=== PATIENT | male | born 1975 | race Caucasian/White ===

== ENCOUNTER 2019-06-22 12:34 | Inpatient (IN) | payer OTHER ==
[~2019-06-22] VITALS: Ht 182.9 cm; Wt 145.0 kg
[~2019-06-22 12:34] MED LIST: ASPI81TA50 PO; ATOR40TA59 PO; BUPR150T15 PO; CARV3.1210 PO; LEVO25TA55 PO; TORS20TA2 PO
[2019-06-22 15:15] VITALS: BP 97/51
--- NOTE | 2019-06-22 16:14 | PDOC1 ---
History and Physical Date of Admission Date of Admission DATE: 06/22/19 TIME: 16:14 Identification/Chief Complaint Chief Complaint INPATIENT HOSPICE FOR ENDSTAGE CHF History of Present Illness History of Present Illness ADMITTED TO INPATIENT [facility] SEEN IN ER WITH PSYCHOSIS 43 year old male who presents with altered mental status. Patient is a history of a nonischemic cardiomyopathy can use he just had a 16-day admission at where he had an echo that showed a 15% ejection fraction he was up 100 pounds from his dry weight he had a Bumex drip he had altered mental status back then in the hospital ultimately he came off of the heart failure service because he was not a candidate for advanced heart failure therapies according to the discharge summary Since he is been home he is been urinating on himself mother cannot take care of him anymore she told me that he he told her that he would not want to be on life support. HOSPICE NOW [facility] IS STILL ALTERED, WORKED HIM UP Past Medical History Past Medical History Past Medical History Past Medical History Past Medical History: Anemia, Anxiety, CHF, Depression, Diabetes-Type II, High Cholesterol, Hypertension, Hypothyroid, Other Additional Past Medical Histor: V-TACH,CARDIOGENIC SHOCK,JACKI Past Surgical History: Appendectomy, Other Additional Past Surgical Histo: AICD,HERNIA Smoking Status: Former Smoker Alcohol Use: None Social History Narrative: LAST USED May PRIOR TO ADMISSION TO [facility] FHX OBESITY Family History Family History: High Cholestrol, Hypertension Social History Smoke: <1 pack per day ALCOHOL: heavy Drugs: Marijuana Current Problem List Problem List Problems Medical Problems: (1) Altered mental status Status: Acute Current Medications Current Medications Current Medications Piperacillin Sod/ Tazobactam Sod 3.375 gm/Sodium Chloride 50 ml @ 100 mls/hr 1X ONCE IV Last administered on 06/18/19at 15:07; Start 06/18/19 at 14:30; Stop 06/18/19 at 14:59; Status DC Active Scripts Active Reported Synthroid (Levothyroxine Sodium) 25 Mcg Tablet 25 Mcg PO DAILYAC Wellbutrin Xl (Bupropion Hcl) 150 Mg Tab.er.24h 75 Mg PO DAILY Atorvastatin Calcium 40 Mg Tablet 40 Mg PO HS Aspir-Low (Aspirin) 81 Mg Tablet.dr 81 Mg PO DAILY Torsemide 20 Mg Tablet 80 Mg PO DAILY Carvedilol (Carvedilol) 3.125 Mg Tablet 3.125 Mg PO BIDWMEALS Allergies Allergies: Coded Allergies: trazodone (Verified Allergy, Unknown, 06/19/19) zolpidem (Verified Allergy, Unknown, 06/19/19) ROS Review of System UNABLE TO COOPERATE DUE TO PSYCHOSIS Musculoskeletal: Yes Muscular Weakness Neurological: Yes Impaired Coord/balance, Yes Memory Loss Physical Exam Physical Exam Physical Exam Physical Exam Constitutional: Disheveled, MODERATELY altered HENT: Normocephalic, atraumatic, bilateral external ears normal, oropharynx moist, no oral exudates, nose normal. [] Eyes: PERRLA, EOMI,, no discharge. [] Sclera appear icteric Neck: Normal range of motion, no tenderness, supple, no stridor. [] Cardiovascular: Difficult exam distant heart sounds Lungs & Thorax: Decreased at the bases Abdomen: Bowel sounds normal, soft, there is significant obesity difficult to assess for clear exam Back: No tenderness, no CVA tenderness. [] Extremities: No tenderness, no cyanosis, no clubbing, ROM intact, anasarca present Neurologic: Patient is moaning almost incoherently HEENT: Mucous membr. moist/pink Lungs: Clear to auscultation Heart: RRR Breasts: Not examined Abdomen: Normal bowel sounds, Soft Rectal Exam: not examined PELVIC: Examination not indicated Extremities: No cyanosis Neuro: Cranial nerves 3-12 NL Family History Family History: High Cholestrol, Hypertension Social History Smoke: <1 pack per day ALCOHOL: heavy Drugs: Marijuana Current Medications Current Medications Active Scripts Active Reported Synthroid (Levothyroxine Sodium) 25 Mcg Tablet 25 Mcg PO DAILYAC Wellbutrin Xl (Bupropion Hcl) 150 Mg Tab.er.24h 75 Mg PO DAILY Atorvastatin Calcium 40 Mg Tablet 40 Mg PO HS Aspir-Low (Aspirin) 81 Mg Tablet.dr 81 Mg PO DAILY Torsemide 20 Mg Tablet 80 Mg PO DAILY Carvedilol (Carvedilol) 3.125 Mg Tablet 3.125 Mg PO BIDWMEALS Allergies Allergies: Coded Allergies: trazodone (Verified Allergy, Unknown, 06/19/19) zolpidem (Verified Allergy, Unknown, 06/19/19) ROS General: YES: Fatigue PSYCHOLOGICAL ROS: YES: Disorientation, Hallucinations Eyes: No Blurry vision, No Decreased vision, No Double vision, No Dry eyes, No Excessive tearing, No Eye Pain, No Itchy Eyes, No Loss of vision, No Photophobia, No Scotomata, No Uses contacts, No Uses glasses, No Other HEENT: No: Heacaches, Visual Changes, Hearing change, Nasal congestion, Nasal discharge, Oral lesions, Sinus pain, Sore Throat, Epistaxis, Sneezing, Snoring, Tinnitus, Vertigo, Vocal changes, Other Breast: No New/Changing Breast Lumps, No Nipple changes, No Nipple discharge, No Other Respiratory: No: Cough, Hemoptysis, Orthopnea, Pleuritic Pain, Shortness of breath, SOB with excertion, Sputum Changes, Stridor, Tachypnea, Wheezing, Other Cardiovascular: No Chest Pain, No Palpitations, No Orthopnea, No Paroxysmal Noc. Dyspnea, No Edema, No Lt Headedness, No Other Gastrointestinal: No Nausea, No Vomiting, No Abdominal Pain, No Diarrhea, No Constipation, No Melena, No Hematochezia, No Other Genitourinary: YES Urgency Musculoskeletal: Yes Gait Disturbance, Yes Joint Stiffness Neurological: Yes Confusion Physical Exam HEENT: Atraumatic, EOMI, Mucous membr. moist/pink Lungs: Clear to auscultation, Normal air movement Heart: RRR, no thrills Abdomen: Normal bowel sounds, Soft Rectal Exam: not examined PELVIC: Examination not indicated Extremities: No cyanosis Skin: No breakdown Neuro: Cranial nerves 3-12 NL Vitals Vitals Vital Signs Date Time Temp Pulse Resp B/P (MAP) Pulse Ox O2 Delivery O2 Flow Rate FiO2 06/22/19 15:30 Room Air 06/22/19 15:15 98.1 93 18 97/51 (66) 94 98.1 VTE Prophylaxis Ordered VTE Prophylaxis Devices: Yes VTE Pharmacological Prophylaxi: Yes Assessment/Plan Assessment/Plan VTE Prophylaxis Ordered VTE Prophylaxis Devices: No VTE Pharmacological Prophylaxi: Yes Assessment/Plan Assessment/Plan IMPRESSION ALTERED MENTAL STATUS SEC TO PSYCHOSIS 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 SEVERE MORBID OBESITY UTI HX AICD PLAN ADMIT CARDIOLOGY CONSULT [facility] PENDING IV ROCEPHIN 2 GM Q 24 HRS 77 min pt exam, chart review, > 50% of time spent with exam, chart review, pt care coordination DEVON MARSHALL MD Jun 22, 2019 16:14
[2019-06-22] MEDS ORDERED: ACETAMINOPHEN 650 MG SUPP.RECT. PR PRN (16:30)
[2019-06-22] MEDS ORDERED: PROMETHAZINE 25 MG SUPP.RECT. PR PRN (16:30)
[2019-06-22] MEDS ORDERED: BISACODYL 10 MG SUPP.RECT. PR PRN (16:30)
[2019-06-22] MEDS ORDERED: LORazepam 1 MG TABLET PO PRN ×2 (16:30→17:45)
[2019-06-22] MEDS: CARVEDILOL 3.125 MG TABLET. PO SCH (17:00)
[2019-06-22] MEDS ORDERED: PROCHLORPERAZINE 5 MG TABLET. PO PRN (17:45)
[2019-06-22] MEDS ORDERED: diphenhydrAMINE 50 MG/ML VIAL IVP PRN (17:45)
[2019-06-22] MEDS: LORazepam 1 MG TABLET PO PRN ×2 (17:58→20:30)
[2019-06-22 19:00] VITALS: BP 113/62
[2019-06-22] MEDS: ATORVASTATIN CALCIUM 40 MG TABLET. PO SCH (20:29)
[2019-06-23 03:05] VITALS: BP 117/67
[2019-06-23 07:00] VITALS: BP 119/72
[2019-06-23] MEDS: LEVOTHYROXINE 25 MCG TABLET. PO SCH (09:49)
[2019-06-23] MEDS: buPROPion XL 150 MG TAB.ER.24H. PO SCH (09:49)
[2019-06-23] MEDS: THIAMINE IM 200 MG/2 ML VIAL. IM SCH (09:49)
[2019-06-23] MEDS: TORSEMIDE 20 MG TABLET. PO SCH (09:49)
[2019-06-23] MEDS: CARVEDILOL 3.125 MG TABLET. PO SCH ×2 (09:49→17:13)
[2019-06-23] MEDS: ASPIRIN ENTERIC COATED 81 MG TABLET.DR. PO SCH (09:49)
--- NOTE | 2019-06-23 11:11 | PDOC ---
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 SEVERE MORBID OBESITY UTI HX AICD PLAN ADMIT CARDIOLOGY CONS[facility] PEND[facility] IV ROCEPHIN 2 GM Q 24 HRS 37 min pt exam, chart review, > 50% of time spent with exam, chart review, pt care coordination Vitals Vitals Vital Signs Date Time Temp Pulse Resp B/P (MAP) Pulse Ox O2 Delivery O2 Flow Rate FiO2 06/23/19 09:49 105 119/72 06/23/19 08:00 Room Air 06/23/19 07:00 97.5 18 91 97.5 Physical Exam Physical Exam Constitutional: Disheveled, MODERATELY altered HENT: Normocephalic, atraumatic, bilateral external ears normal, oropharynx moist, no oral exudates, nose normal. [] Eyes: PERRLA, EOMI,, no discharge. [] Sclera appear icteric Neck: Normal range of motion, no tenderness, supple, no stridor. [] Cardiovascular: Difficult exam distant heart sounds Lungs & Thorax: Decreased at the bases Abdomen: Bowel sounds normal, soft, there is significant obesity difficult to assess for clear exam Back: No tenderness, no CVA tenderness. [] Extremities: No tenderness, no cyanosis, no clubbing, ROM intact, anasarca present Neurologic: Patient is moaning almost incoherently HEENT: Mucous membr. moist/pink Lungs: Clear to auscultation Heart: RRR Breasts: Not examined Abdomen: Normal bowel sounds, Soft Rectal Exam: not examined PELVIC: Examination not indicated Extremities: No cyanosis Neuro: Cranial nerves 3-12 NL General: Cooperative, No acute distress Lungs: Clear Abdomen: Normal bowel sounds, Soft, No tenderness Extremities: No cyanosis Skin: No breakdown Labs LABS Laboratory Tests Test 06/22/19 16:34 06/22/19 20:34 06/23/19 07:24 06/23/19 08:47 Glucose (Fingerstick) 73 mg/dL (70-99) 133 mg/dL (70-99) 64 mg/dL (70-99) 103 mg/dL (70-99) Comment Review of Relevant I have reviewed the following items severo (where applicable) has been applied. Labs Laboratory Tests Test 06/22/19 16:34 06/22/19 20:34 06/23/19 07:24 06/23/19 08:47 Glucose (Fingerstick) 73 mg/dL (70-99) 133 mg/dL (70-99) 64 mg/dL (70-99) 103 mg/dL (70-99) Laboratory Tests Test 06/22/19 16:34 06/22/19 20:34 06/23/19 07:24 06/23/19 08:47 Glucose (Fingerstick) 73 mg/dL (70-99) 133 mg/dL (70-99) 64 mg/dL (70-99) 103 mg/dL (70-99) Medications Current Medications Morphine Sulfate (Roxanol Conc) 5 mg PRN Q2HRS PRN SL SOA/MOD-SEVERE PAIN; Start 06/22/19 at 16:30 Lorazepam (Ativan) 1 mg PRN Q4HRS PRN PO ANXIETY / AGITATION; Start 06/22/19 at 16:30; Stop 06/22/19 at 17:44; Status DC Bisacodyl (Dulcolax Supp) 10 mg PRN DAILY PRN SC CONSTIPATION; Start 06/22/19 at 16:30 Promethazine HCl (Phenergan Supp) 25 mg PRN Q4HRS PRN SC NAUSEA/VOMITING; Start 06/22/19 at 16:30 Acetaminophen (Tylenol Supp) 650 mg PRN Q4HRS PRN SC MILD PAIN / TEMP; Start 06/22/19 at 16:30 Aspirin (Ecotrin) 81 mg DAILY PO Last administered on 06/23/19at 09:49; Start 06/23/19 at 09:00 Atorvastatin Calcium (Lipitor) 40 mg HS PO Last administered on 06/22/19at 20:29; Start 06/22/19 at 21:00 Bupropion HCl (Wellbutrin Xl) 75 mg DAILY PO Last administered on 06/23/19at 09:49; Start 06/23/19 at 09:00 Carvedilol (Coreg) 3.125 mg BIDWMEALS PO Last administered on 06/23/19at 09:49; Start 06/22/19 at 17:00 Levothyroxine Sodium (Synthroid) 25 mcg DAILYAC PO Last administered on 06/23/19at 09:49; Start 06/23/19 at 07:30 Torsemide (Demadex) 80 mg DAILY PO Last administered on 06/23/19at 09:49; Start 06/23/19 at 09:00 Multivitamins (Thera M Plus) 1 tab DAILY PO ; Start 06/27/19 at 09:00 Folic Acid (Folic Acid) 1 mg DAILY PO ; Start 06/27/19 at 09:00 Thiamine Mononitrate (Vitamin B-1) 100 mg DAILY PO ; Start 06/27/19 at 09:00 Thiamine HCl 100 mg DAILY IM Last administered on 06/23/19at 09:49; Start 06/23/19 at 09:00; Stop 06/26/19 at 09:01 Lorazepam (Ativan) 4 mg PRN Q1HR PRN PO For CIWA 8-14 Last administered on 06/22/19at 20:30; Start 06/22/19 at 17:45 Lorazepam (Ativan) 8 mg PRN Q1HR PRN PO For CIWA 15 or greater; Start 06/22/19 at 17:45 Lorazepam (Ativan Inj) 2 mg PRN Q1HR PRN IV For CIWA 8-14; Start 06/22/19 at 17:45 Lorazepam (Ativan Inj) 4 mg PRN Q1HR PRN IV For CIWA 15 or greater; Start at 17:45 Haloperidol Lactate (Haldol Inj) 5 mg PRN Q4HRS PRN IVP Hallucinatns,Confusn,Delirium; Start 06/22/19 at 17:45 Diphenhydramine HCl (Benadryl) 25 mg PRN Q15MIN PRN IVP EPS symptoms 2'Haldol admin; Start 06/22/19 at 17:45 Lorazepam (Ativan Inj) 2 mg PRN Q15MIN PRN IV SEE COMMENTS; Start 06/22/19 at 17:45 Lorazepam (Ativan Inj) 4 mg PRN Q15MIN PRN IV SEE COMMENTS; Start 06/22/19 at 17:45 Lorazepam (Ativan) 4 mg PRN Q4HRS PRN PO ANXIETY / AGITATION Last administered on 06/22/19at 17:58; Start 06/22/19 at 17:45 Prochlorperazine Maleate (Compazine) 10 mg PRN Q8HRS PRN PO NAUSEA/VOMITING Last administered on 06/22/19at 17:57; Start 06/22/19 at 17:45 Active Scripts Active Reported Synthroid (Levothyroxine Sodium) 25 Mcg Tablet 25 Mcg PO DAILYAC Wellbutrin Xl (Bupropion Hcl) 150 Mg Tab.er.24h 75 Mg PO DAILY Atorvastatin Calcium 40 Mg Tablet 40 Mg PO HS Aspir-Low (Aspirin) 81 Mg Tablet.dr 81 Mg PO DAILY Torsemide 20 Mg Tablet 80 Mg PO DAILY Carvedilol (Carvedilol) 3.125 Mg Tablet 3.125 Mg PO BIDWMEALS Vitals/I & O Vital Sign - Last 24 Hours 06/22/19 06/22/19 06/22/19 06/22/19 15:15 15:30 17:00 19:00 Temp 98.1 97.5 98.1 97.5 Pulse 93 98 86 Resp 18 24 B/P (MAP) 97/51 (66) 157/52 113/62 (79) Pulse Ox 94 93 O2 Delivery Room Air Room Air Room Air 06/22/19 06/23/19 06/23/19 06/23/19 20:00 03:05 07:00 08:00 Temp 98.1 97.5 98.1 97.5 Pulse 92 105 Resp 22 18 B/P (MAP) 117/67 (84) 119/72 (88) Pulse Ox 92 91 O2 Delivery Room Air Room Air Room Air Room Air 06/23/19 09:49 Pulse 105 B/P (MAP) 119/72 Intake and Output 06/22/19 06/22/19 06/23/19 15:00 23:00 07:00 Intake Total 1260 ml 0 ml Output Total 1425 ml 0 ml Balance -165 ml 0 ml DEVON MARSHALL MD Jun 23, 2019 11:11
[2019-06-23] MEDS: IPRATRPIUM/ALBUTEROL 0.5/2.5MG 3 ML NEBU. NEB SCH ×2 (16:00→20:55)
[2019-06-23 19:00] VITALS: BP 108/68
[2019-06-23] MEDS: ATORVASTATIN CALCIUM 40 MG TABLET. PO SCH (19:43)
[2019-06-23] MEDS: HALOPERIDOL LACTATE 5 MG/ML VIAL. IVP PRN (21:41)
[2019-06-24 07:00] VITALS: BP 122/77
[2019-06-24] MEDS: IPRATRPIUM/ALBUTEROL 0.5/2.5MG 3 ML NEBU. NEB SCH ×5 (07:33→21:15)
[2019-06-24] MEDS: ASPIRIN ENTERIC COATED 81 MG TABLET.DR. PO SCH (07:53)
[2019-06-24] MEDS: LEVOTHYROXINE 25 MCG TABLET. PO SCH (07:53)
[2019-06-24] MEDS: TORSEMIDE 20 MG TABLET. PO SCH (07:53)
[2019-06-24] MEDS: buPROPion XL 150 MG TAB.ER.24H. PO SCH (07:53)
[2019-06-24] MEDS: CARVEDILOL 3.125 MG TABLET. PO SCH ×2 (07:54→17:33)
[2019-06-24] MEDS: THIAMINE IM 200 MG/2 ML VIAL. IM SCH (07:56)
[2019-06-24] MEDS: HALOPERIDOL LACTATE 5 MG/ML VIAL. IVP PRN (10:06)
--- NOTE | 2019-06-24 15:47 | PDOC ---
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 SEVERE MORBID OBESITY UTI HX AICD secondary to nonischemic cardiomyopathy with an ejection fraction reported at 15% History of Present Illness History of Present Illness Patient stable at the present time eating lunch no concerns from the nursing staff except that he walks around and they are concerned that he may fall. No further concerns were voiced Vitals Vitals Vital Signs Date Time Temp Pulse Resp B/P (MAP) Pulse Ox O2 Delivery O2 Flow Rate FiO2 06/24/19 12:06 Room Air 06/24/19 07:54 45 122/77 06/24/19 07:33 96 06/24/19 07:00 98.1 17 98.1 Physical Exam Physical Exam Constitutional: Disheveled, MODERATELY altered HENT: Normocephalic, atraumatic, bilateral external ears normal, oropharynx moist, no oral exudates, nose normal. [] Eyes: PERRLA, EOMI,, no discharge. [] Sclera appear icteric Neck: Normal range of motion, no tenderness, supple, no stridor. [] Cardiovascular: Difficult exam distant heart sounds Lungs & Thorax: Decreased at the bases Abdomen: Bowel sounds normal, soft, there is significant obesity difficult to assess for clear exam Back: No tenderness, no CVA tenderness. [] Extremities: No tenderness, no cyanosis, no clubbing, ROM intact, anasarca present Neurologic: Patient is moaning almost incoherently HEENT: Mucous membr. moist/pink Lungs: Clear to auscultation Heart: RRR Breasts: Not examined Abdomen: Normal bowel sounds, Soft Rectal Exam: not examined PELVIC: Examination not indicated Extremities: No cyanosis Neuro: Cranial nerves 3-12 NL General: Cooperative, No acute distress Lungs: Clear Abdomen: Normal bowel sounds, Soft, No tenderness Extremities: No cyanosis Skin: No breakdown Labs LABS Laboratory Tests Test 06/23/19 16:24 06/23/19 19:13 06/24/19 07:28 06/24/19 11:36 Glucose (Fingerstick) 142 mg/dL (70-99) 156 mg/dL (70-99) 110 mg/dL (70-99) 127 mg/dL (70-99) Review of Systems Review of Systems Review of systems pertinent as per HPI otherwise 14 point review of system is negative Comment Review of Relevant I have reviewed the following items severo (where applicable) has been applied. Labs Laboratory Tests Test 06/22/19 16:34 06/22/19 20:34 06/23/19 07:24 06/23/19 08:47 Glucose (Fingerstick) 73 mg/dL (70-99) 133 mg/dL (70-99) 64 mg/dL (70-99) 103 mg/dL (70-99) Test 06/23/19 11:47 06/23/19 16:24 06/23/19 19:13 06/24/19 07:28 Glucose (Fingerstick) 145 mg/dL (70-99) 142 mg/dL (70-99) 156 mg/dL (70-99) 110 mg/dL (70-99) Test 06/24/19 11:36 Glucose (Fingerstick) 127 mg/dL (70-99) Laboratory Tests Test 06/23/19 16:24 06/23/19 19:13 06/24/19 07:28 06/24/19 11:36 Glucose (Fingerstick) 142 mg/dL (70-99) 156 mg/dL (70-99) 110 mg/dL (70-99) 127 mg/dL (70-99) Medications Current Medications Morphine Sulfate (Roxanol Conc) 5 mg PRN Q2HRS PRN SL SOA/MOD-SEVERE PAIN; Start 06/22/19 at 16:30 Lorazepam (Ativan) 1 mg PRN Q4HRS PRN PO ANXIETY / AGITATION; Start 06/22/19 at 16:30; Stop 06/22/19 at 17:44; Status DC Bisacodyl (Dulcolax Supp) 10 mg PRN DAILY PRN DE CONSTIPATION; Start 06/22/19 at 16:30 Promethazine HCl (Phenergan Supp) 25 mg PRN Q4HRS PRN DE NAUSEA/VOMITING; Start 06/22/19 at 16:30 Acetaminophen (Tylenol Supp) 650 mg PRN Q4HRS PRN DE MILD PAIN / TEMP; Start 06/22/19 at 16:30 Aspirin (Ecotrin) 81 mg DAILY PO Last administered on 06/24/19at 07:53; Start 06/23/19 at 09:00 Atorvastatin Calcium (Lipitor) 40 mg HS PO Last administered on 06/23/19 19:43; Start 06/22/19 at 21:00 Bupropion HCl (Wellbutrin Xl) 75 mg DAILY PO Last administered on 06/24/19 07:53; Start 06/23/19 at 09:00 Carvedilol (Coreg) 3.125 mg BIDWMEALS PO Last administered on 06/23/19at 17:13; Start 06/22/19 at 17:00 Levothyroxine Sodium (Synthroid) 25 mcg DAILYAC PO Last administered on 06/24/19 07:53; Start 06/23/19 at 07:30 Torsemide (Demadex) 80 mg DAILY PO Last administered on 06/24/19 07:53; Start 06/23/19 at 09:00 Multivitamins (Thera M Plus) 1 tab DAILY PO ; Start 06/27/19 at 09:00 Folic Acid (Folic Acid) 1 mg DAILY PO ; Start 06/27/19 at 09:00 Thiamine Mononitrate (Vitamin B-1) 100 mg DAILY PO ; Start 06/27/19 at 09:00 Thiamine HCl 100 mg DAILY IM Last administered on 06/24/19 07:56; Start 05/30 08/17 at 09:00; Stop 06/26/19 at 09:01 Lorazepam (Ativan) 4 mg PRN Q1HR PRN PO For CIWA 8-14 Last administered on 06/22/19at 20:30; Start 06/22/19 at 17:45 Lorazepam (Ativan) 8 mg PRN Q1HR PRN PO For CIWA 15 or greater; Start 06/22/19 at 17:45 Lorazepam (Ativan Inj) 2 mg PRN Q1HR PRN IV For CIWA 8-14 Last administered on 06/23/19at 23:28; Start 06/22/19 at 17:45 Lorazepam (Ativan Inj) 4 mg PRN Q1HR PRN IV For CIWA 15 or greater Last administered on 06/23/19at 19:43; Start 06/22/19 at 17:45 Haloperidol Lactate (Haldol Inj) 5 mg PRN Q4HRS PRN IVP Hallucinatns,Confusn,Delirium Last administered on 06/24/19at 10:06; Start 06/22/19 at 17:45 Diphenhydramine HCl (Benadryl) 25 mg PRN Q15MIN PRN IVP EPS symptoms 2'Haldol admin; Start 06/22/19 at 17:45 Lorazepam (Ativan Inj) 2 mg PRN Q15MIN PRN IV SEE COMMENTS; Start 06/22/19 at 17:45; Status Cancel Lorazepam (Ativan Inj) 4 mg PRN Q15MIN PRN IV SEE COMMENTS; Start 06/22/19 at 17:45; Status Cancel Lorazepam (Ativan) 4 mg PRN Q4HRS PRN PO ANXIETY / AGITATION Last administered on 06/22/19at 17:58; Start 06/22/19 at 17:45 Prochlorperazine Maleate (Compazine) 10 mg PRN Q8HRS PRN PO NAUSEA/VOMITING Last administered on 06/22/19at 17:57; Start 06/22/19 at 17:45 Albuterol/ Ipratropium (Duoneb) 3 ml RTQID NEB Last administered on 06/24/19at 12:06; Start 06/23/19 at 16:00 Active Scripts Active Reported Synthroid (Levothyroxine Sodium) 25 Mcg Tablet 25 Mcg PO DAILYAC Wellbutrin Xl (Bupropion Hcl) 150 Mg Tab.er.24h 75 Mg PO DAILY Atorvastatin Calcium 40 Mg Tablet 40 Mg PO HS Aspir-Low (Aspirin) 81 Mg Tablet.dr 81 Mg PO DAILY Torsemide 20 Mg Tablet 80 Mg PO DAILY Carvedilol (Carvedilol) 3.125 Mg Tablet 3.125 Mg PO BIDWMEALS Vitals/I & O Vital Sign - Last 24 Hours 06/23/19 06/23/19 06/23/19 06/23/19 17:13 19:00 20:00 21:03 Temp 98.1 98.1 Pulse 98 99 Resp 18 B/P (MAP) 104/78 108/68 (81) Pulse Ox 96 96 O2 Delivery Room Air Room Air 06/24/19 06/24/19 06/24/19 06/24/19 07:00 07:30 07:33 07:54 Temp 98.1 98.1 Pulse 45 45 Resp 17 B/P (MAP) 122/77 (92) 122/77 Pulse Ox 71 96 O2 Delivery Room Air Room Air Room Air 06/24/19 12:06 O2 Delivery Room Air Intake and Output 06/23/19 06/23/19 06/24/19 15:00 23:00 07:00 Intake Total 1360 ml 1570 ml 220 ml Output Total 800 ml Balance 1360 ml 1570 ml -580 ml EARLINE MAN MD Jun 24, 2019 15:47
[2019-06-24 19:00] VITALS: BP 111/53
[2019-06-25] MEDS: LORazepam 1 MG TABLET PO PRN ×3 (00:58→08:17)
[2019-06-25 03:40] VITALS: BP 93/63
[2019-06-25 07:00] VITALS: BP 105/70
[2019-06-25] MEDS: IPRATRPIUM/ALBUTEROL 0.5/2.5MG 3 ML NEBU. NEB SCH ×4 (07:13→20:00)
[2019-06-25] MEDS: CARVEDILOL 3.125 MG TABLET. PO SCH ×2 (08:18→18:32)
[2019-06-25] MEDS: TORSEMIDE 20 MG TABLET. PO SCH (08:18)
[2019-06-25] MEDS: MORPHINE SULFATE 20 MG/ML CONC SOLUTION. SL PRN ×3 (08:35→18:29)
[2019-06-25 11:18] VITALS: BP 113/81
--- NOTE | 2019-06-25 12:27 | NUR ---
SW following. Discussed with RN and Lou Mota social sciences instructor. Per Lou 5 facilities have declined to take pt due to pt not having a DPOA and pt does not have capacity to appoint a DPOA currently. Per Lou, pt's mother would have to file for emergency guardianship, however the courts are currently closed due to Covid-19. Lou is not sure if pt's mother even has funds to pay for an intervention analyst. Lou advised pt's mother has her own health concerns so isn't sure if she can take care of her son. Pt will be inpatient hospice through the weekend, Svetlana will attempt to find placement for pt over the weekend. ORLY discussed with VIVIEN Agarwal who had pt prior to inpatient hospice. Any advised she had spoke with pt's mother at length about possibility of having to take pt home if pt can no longer be inpatient hospice. Any advised, at that time mother verbalized understanding. ORLY will continue to follow. RN and Dr. Gonzáles notified.
--- NOTE | 2019-06-25 15:27 | PDOC ---
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 SEVERE MORBID OBESITY UTI HX AICD secondary to nonischemic cardiomyopathy with an ejection fraction reported at 15% History of Present Illness History of Present Illness Patient stable at the present time eating lunch no concerns from the nursing staff except that he walks around and they are concerned that he may fall. No further concerns were voiced Vitals Vitals Vital Signs Date Time Temp Pulse Resp B/P (MAP) Pulse Ox O2 Delivery O2 Flow Rate FiO2 06/25/19 13:08 94 Nasal Cannula 2.0 06/25/19 11:18 101 22 113/81 (92) 06/24/19 19:00 97.5 97.5 Physical Exam Physical Exam Constitutional: Disheveled, MODERATELY altered HENT: Normocephalic, atraumatic, bilateral external ears normal, oropharynx moist, no oral exudates, nose normal. [] Eyes: PERRLA, EOMI,, no discharge. [] Sclera appear icteric Neck: Normal range of motion, no tenderness, supple, no stridor. [] Cardiovascular: Difficult exam distant heart sounds Lungs & Thorax: Decreased at the bases Abdomen: Bowel sounds normal, soft, there is significant obesity difficult to assess for clear exam Back: No tenderness, no CVA tenderness. [] Extremities: No tenderness, no cyanosis, no clubbing, ROM intact, anasarca present Neurologic: Patient is moaning almost incoherently HEENT: Mucous membr. moist/pink Lungs: Clear to auscultation Heart: RRR Breasts: Not examined Abdomen: Normal bowel sounds, Soft Rectal Exam: not examined PELVIC: Examination not indicated Extremities: No cyanosis Neuro: Cranial nerves 3-12 NL General: Cooperative, No acute distress Lungs: Clear Abdomen: Normal bowel sounds, Soft, No tenderness Extremities: No cyanosis Skin: No breakdown Labs LABS Laboratory Tests Test 06/24/19 16:40 06/24/19 20:30 06/25/19 07:38 Glucose (Fingerstick) 82 mg/dL (70-99) 152 mg/dL (70-99) 95 mg/dL (70-99) Review of Systems Review of Systems Review of systems pertinent as per HPI otherwise 14 point review of system is negative Comment Review of Relevant I have reviewed the following items severo (where applicable) has been applied. Labs Laboratory Tests Test 06/23/19 16:24 06/23/19 19:13 06/24/19 07:28 06/24/19 11:36 Glucose (Fingerstick) 142 mg/dL (70-99) 156 mg/dL (70-99) 110 mg/dL (70-99) 127 mg/dL (70-99) Test 06/24/19 16:40 06/24/19 20:30 06/25/19 07:38 Glucose (Fingerstick) 82 mg/dL (70-99) 152 mg/dL (70-99) 95 mg/dL (70-99) Laboratory Tests Test 06/24/19 16:40 06/24/19 20:30 06/25/19 07:38 Glucose (Fingerstick) 82 mg/dL (70-99) 152 mg/dL (70-99) 95 mg/dL (70-99) Medications Current Medications Morphine Sulfate (Roxanol Conc) 5 mg PRN Q2HRS PRN SL SOA/MOD-SEVERE PAIN Last administered on 06/25/19at 10:46; Start 06/22/19 at 16:30 Lorazepam (Ativan) 1 mg PRN Q4HRS PRN PO ANXIETY / AGITATION; Start 06/22/19 at 16:30; Stop 06/22/19 at 17:44; Status DC Bisacodyl (Dulcolax Supp) 10 mg PRN DAILY PRN [place] CONSTIPATION; Start 06/22/19 at 16:30 Promethazine HCl (Phenergan Supp) 25 mg PRN Q4HRS PRN [place] NAUSEA/VOMITING; Start 06/22/19 at 16:30 Acetaminophen (Tylenol Supp) 650 mg PRN Q4HRS PRN [place] MILD PAIN / TEMP; Start 06/22/19 at 16:30 Aspirin (Ecotrin) 81 mg DAILY PO Last administered on 06/24/19at 07:53; Start 06/23/19 at 09:00; Stop 06/24/19 at 15:43; Status DC Atorvastatin Calcium (Lipitor) 40 mg HS PO Last administered on 06/23/19at 19:43; Start 06/22/19 at 21:00; Stop 06/24/19 at 15:43; Status DC Bupropion HCl (Wellbutrin Xl) 75 mg DAILY PO Last administered on 06/24/19at 07:53; Start 06/23/19 at 09:00; Stop 06/24/19 at 15:43; Status DC Carvedilol (Coreg) 3.125 mg BIDWMEALS PO Last administered on 06/25/19at 08:18; Start 06/22/19 at 17:00 Levothyroxine Sodium (Synthroid) 25 mcg DAILYAC PO Last administered on 06/24/19at 07:53; Start 06/23/19 at 07:30; Stop 06/24/19 at 15:43; Status DC Torsemide (Demadex) 80 mg DAILY PO Last administered on 06/25/19at 08:18; Start 06/23/19 at 09:00 Multivitamins (Thera M Plus) 1 tab DAILY PO ; Start 06/27/19 at 09:00; Stop 06/24/19 at 15:43; Status DC Folic Acid (Folic Acid) 1 mg DAILY PO ; Start 06/27/19 at 09:00; Stop 06/24/19 at 15:43; Status DC Thiamine Mononitrate (Vitamin B-1) 100 mg DAILY PO ; Start 06/27/19 at 09:00; Stop 06/24/19 at 15:43; Status DC Thiamine HCl 100 mg DAILY IM Last administered on 06/24/19at 07:56; Start 06/23/19 at 09:00; Stop 06/24/19 at 15:43; Status DC Lorazepam (Ativan) 4 mg PRN Q1HR PRN PO For CIWA 8-14 Last administered on 06/25/19at 08:17; Start 06/22/19 at 17:45 Lorazepam (Ativan) 8 mg PRN Q1HR PRN PO For CIWA 15 or greater; Start 06/22/19 at 17:45 Lorazepam (Ativan Inj) 2 mg PRN Q1HR PRN IV For CIWA 8-14 Last administered on 06/23/19at 23:28; Start 06/22/19 at 17:45 Lorazepam (Ativan Inj) 4 mg PRN Q1HR PRN IV For CIWA 15 or greater Last administered on 06/23/19at 19:43; Start 06/22/19 at 17:45 Haloperidol Lactate (Haldol Inj) 5 mg PRN Q4HRS PRN IVP Hallucinatns,Confusn,Delirium Last administered on 06/24/19at 10:06; Start 06/22/19 at 17:45 Diphenhydramine HCl (Benadryl) 25 mg PRN Q15MIN PRN IVP EPS symptoms 2'Haldol admin; Start 06/22/19 at 17:45 Lorazepam (Ativan Inj) 2 mg PRN Q15MIN PRN IV SEE COMMENTS; Start 06/22/19 at 17:45; Status Cancel Lorazepam (Ativan Inj) 4 mg PRN Q15MIN PRN IV SEE COMMENTS; Start 06/22/19 at 17:45; Status Cancel Lorazepam (Ativan) 4 mg PRN Q4HRS PRN PO ANXIETY / AGITATION Last administered on 06/25/19at 04:54; Start 06/22/19 at 17:45 Prochlorperazine Maleate (Compazine) 10 mg PRN Q8HRS PRN PO NAUSEA/VOMITING Last administered on 06/22/19at 17:57; Start 06/22/19 at 17:45 Albuterol/ Ipratropium (Duoneb) 3 ml RTQID NEB Last administered on 06/25/19at 13:08; Start 06/23/19 at 16:00 Active Scripts Active Reported Synthroid (Levothyroxine Sodium) 25 Mcg Tablet 25 Mcg PO DAILYAC Wellbutrin Xl (Bupropion Hcl) 150 Mg Tab.er.24h 75 Mg PO DAILY Atorvastatin Calcium 40 Mg Tablet 40 Mg PO HS Aspir-Low (Aspirin) 81 Mg Tablet.dr 81 Mg PO DAILY Torsemide 20 Mg Tablet 80 Mg PO DAILY Carvedilol (Carvedilol) 3.125 Mg Tablet 3.125 Mg PO BIDWMEALS Vitals/I & O Vital Sign - Last 24 Hours 06/24/19 06/24/19 06/24/19 06/24/19 16:00 17:33 19:00 20:00 Temp 97.5 97.5 Pulse 50 90 Resp 20 B/P (MAP) 124/72 111/53 (72) Pulse Ox 93 O2 Delivery Room Air Room Air Room Air 06/24/19 06/24/19 06/25/19 06/25/19 21:13 23:42 03:40 07:00 Pulse 97 98 52 Resp 20 22 22 B/P (MAP) 93/63 (73) 105/70 (82) Pulse Ox 94 90 97 O2 Delivery Room Air Room Air Room Air Room Air 06/25/19 06/25/19 06/25/19 06/25/19 07:14 08:00 08:18 08:35 Pulse 52 Resp 22 B/P (MAP) 105/70 Pulse Ox 95 95 O2 Delivery Room Air Room Air Room Air 06/25/19 06/25/19 06/25/19 06/25/19 09:35 10:46 11:18 13:08 Pulse 101 Resp 22 20 22 B/P (MAP) 113/81 (92) Pulse Ox 99 95 99 94 O2 Delivery Room Air Room Air Room Air Nasal Cannula O2 Flow Rate 2.0 Intake and Output 06/24/19 06/24/19 06/25/19 15:00 23:00 07:00 Intake Total 200 ml Output Total 2350 ml Balance -2350 ml 200 ml EARLINE AMN MD Jun 25, 2019 15:27
[2019-06-25 15:37] VITALS: BP 93/58
[2019-06-25 19:00] VITALS: BP 104/77
[2019-06-25] MEDS ORDERED: ACETAMINOPHEN 325 MG TABLET. PO PRN (21:15)
[2019-06-25 23:00] VITALS: BP 102/72
[2019-06-26] MEDS: MORPHINE SULFATE 20 MG/ML CONC SOLUTION. SL PRN ×2 (00:56→23:43)
--- NOTE | 2019-06-26 01:05 | NUR ---
Pt. became combative this morning with staff. Pt. is now sitting at nurse's station in chair with chair alarm on. Will monitor.
[2019-06-26 03:00] VITALS: BP 104/69
[2019-06-26] MEDS: LORazepam 1 MG TABLET PO PRN (06:15)
[2019-06-26 07:00] VITALS: BP 100/61
[2019-06-26] MEDS: CARVEDILOL 3.125 MG TABLET. PO SCH ×2 (08:00→16:48)
[2019-06-26] MEDS: IPRATRPIUM/ALBUTEROL 0.5/2.5MG 3 ML NEBU. NEB SCH ×4 (08:35→20:20)
[2019-06-26] MEDS: TORSEMIDE 20 MG TABLET. PO SCH (08:53)
[2019-06-26] MEDS: HALOPERIDOL LACTATE 5 MG/ML VIAL. IVP PRN ×4 (09:45→22:16)
--- NOTE | 2019-06-26 11:41 | PDOC ---
PROGRESS NOTES Chief Complaint Chief Complaint impression ALTERED MENTAL STATUS SEC TO PSYCHOSIS 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 SEVERE MORBID OBESITY UTI HX AICD secondary to nonischemic cardiomyopathy with an ejection fraction reported at 15% History of Present Illness History of Present Illness eating lunch , nursing staff concerned that he may fall. gait unstable., slow to improve D/W RN Vitals Vitals Vital Signs Date Time Temp Pulse Resp B/P (MAP) Pulse Ox O2 Delivery O2 Flow Rate FiO2 06/26/19 08:40 Nasal Cannula 2.0 06/26/19 07:00 97.7 87 16 100/61 (74) 96 97.7 Physical Exam Physical Exam Constitutional: Disheveled, MODERATELY altered HENT: Normocephalic, atraumatic, bilateral external ears normal, oropharynx moist, no oral exudates, nose normal. [] Eyes: PERRLA, EOMI,, no discharge. [] Sclera appear icteric Neck: Normal range of motion, no tenderness, supple, no stridor. [] Cardiovascular: Difficult exam distant heart sounds Lungs & Thorax: Decreased at the bases Abdomen: Bowel sounds normal, soft, there is significant obesity difficult to assess for clear exam Back: No tenderness, no CVA tenderness. [] Extremities: No tenderness, no cyanosis, no clubbing, ROM intact, anasarca present Neurologic: Patient is moaning almost incoherently HEENT: Mucous membr. moist/pink Lungs: Clear to auscultation Heart: RRR Breasts: Not examined Abdomen: Normal bowel sounds, Soft Rectal Exam: not examined PELVIC: Examination not indicated Extremities: No cyanosis Neuro: Cranial nerves 3-12 NL General: Cooperative, No acute distress Lungs: Clear Abdomen: Normal bowel sounds, Soft, No tenderness Extremities: No cyanosis Skin: No breakdown Labs LABS Laboratory Tests Test 06/26/19 08:28 Glucose (Fingerstick) 75 mg/dL (70-99) Comment Review of Relevant I have reviewed the following items severo (where applicable) has been applied. Labs Laboratory Tests Test 06/24/19 16:40 06/24/19 20:30 06/25/19 07:38 06/26/19 08:28 Glucose (Fingerstick) 82 mg/dL (70-99) 152 mg/dL (70-99) 95 mg/dL (70-99) 75 mg/dL (70-99) Laboratory Tests Test 06/26/19 08:28 Glucose (Fingerstick) 75 mg/dL (70-99) Medications Current Medications Morphine Sulfate (Roxanol Conc) 5 mg PRN Q2HRS PRN SL SOA/MOD-SEVERE PAIN Last administered on 06/26/19at 00:56; Start 06/22/19 at 16:30 Lorazepam (Ativan) 1 mg PRN Q4HRS PRN PO ANXIETY / AGITATION; Start 06/22/19 at 16:30; Stop 06/22/19 at 17:44; Status DC Bisacodyl (Dulcolax Supp) 10 mg PRN DAILY PRN [place] CONSTIPATION; Start 06/22/19 at 16:30 Promethazine HCl (Phenergan Supp) 25 mg PRN Q4HRS PRN [place] NAUSEA/VOMITING; Start 06/22/19 at 16:30 Acetaminophen (Tylenol Supp) 650 mg PRN Q4HRS PRN [place] MILD PAIN / TEMP; Start 06/22/19 at 16:30 Aspirin (Ecotrin) 81 mg DAILY PO Last administered on 06/24/19 07:53; Start 06/23/19 at 09:00; Stop 06/24/19 at 15:43; Status DC Atorvastatin Calcium (Lipitor) 40 mg HS PO Last administered on 06/23/19at 19:43; Start 06/22/19 at 21:00; Stop 06/24/19 at 15:43; Status DC Bupropion HCl (Wellbutrin Xl) 75 mg DAILY PO Last administered on 06/24/19at 07:53; Start 06/23/19 at 09:00; Stop 06/24/19 at 15:43; Status DC Carvedilol (Coreg) 3.125 mg BIDWMEALS PO Last administered on 06/25/19at 18:32; Start 06/22/19 at 17:00 Levothyroxine Sodium (Synthroid) 25 mcg DAILYAC PO Last administered on 06/24/19 07:53; Start 06/23/19 at 07:30; Stop 06/24/19 at 15:43; Status DC Torsemide (Demadex) 80 mg DAILY PO Last administered on 06/25/19at 08:18; Start 06/23/19 at 09:00 Multivitamins (Thera M Plus) 1 tab DAILY PO ; Start 06/27/19 at 09:00; Stop 06/24/19 at 15:43; Status DC Folic Acid (Folic Acid) 1 mg DAILY PO ; Start 06/27/19 at 09:00; Stop 06/24/19 at 15:43; Status DC Thiamine Mononitrate (Vitamin B-1) 100 mg DAILY PO ; Start 06/27/19 at 09:00; Stop 06/24/19 at 15:43; Status DC Thiamine HCl 100 mg DAILY IM Last administered on 06/24/19at 07:56; Start 06/23/19 at 09:00; Stop 06/24/19 at 15:43; Status DC Lorazepam (Ativan) 4 mg PRN Q1HR PRN PO For CIWA 8-14 Last administered on 06/26/19at 06:15; Start 06/22/19 at 17:45 Lorazepam (Ativan) 8 mg PRN Q1HR PRN PO For CIWA 15 or greater; Start 06/22/19 at 17:45 Lorazepam (Ativan Inj) 2 mg PRN Q1HR PRN IV For CIWA 8-14 Last administered on 06/26/19at 04:32; Start 06/22/19 at 17:45 Lorazepam (Ativan Inj) 4 mg PRN Q1HR PRN IV For CIWA 15 or greater Last administered on 06/26/19at 08:42; Start 06/22/19 at 17:45 Haloperidol Lactate (Haldol Inj) 5 mg PRN Q4HRS PRN IVP Hallucinatns,Confusn,Delirium Last administered on 06/26/19at 09:45; Start 06/22/19 at 17:45 Diphenhydramine HCl (Benadryl) 25 mg PRN Q15MIN PRN IVP EPS symptoms 2'Haldol admin Last administered on 06/26/19at 04:28; Start 06/22/19 at 17:45 Lorazepam (Ativan Inj) 2 mg PRN Q15MIN PRN IV SEE COMMENTS; Start 06/22/19 at 17:45; Status Cancel Lorazepam (Ativan Inj) 4 mg PRN Q15MIN PRN IV SEE COMMENTS; Start 06/22/19 at 17:45; Status Cancel Lorazepam (Ativan) 4 mg PRN Q4HRS PRN PO ANXIETY / AGITATION Last administered on 06/25/19at 04:54; Start 06/22/19 at 17:45 Prochlorperazine Maleate (Compazine) 10 mg PRN Q8HRS PRN PO NAUSEA/VOMITING Last administered on 06/22/19at 17:57; Start 06/22/19 at 17:45 Albuterol/ Ipratropium (Duoneb) 3 ml RTQID NEB Last administered on 06/26/19at 08:35; Start 06/23/19 at 16:00 Acetaminophen (Tylenol) 650 mg PRN Q4HRS PRN PO MILD PAIN 1-3; Start 06/25/19 at 21:15 Active Scripts Active Reported Synthroid (Levothyroxine Sodium) 25 Mcg Tablet 25 Mcg PO DAILYAC Wellbutrin Xl (Bupropion Hcl) 150 Mg Tab.er.24h 75 Mg PO DAILY Atorvastatin Calcium 40 Mg Tablet 40 Mg PO HS Aspir-Low (Aspirin) 81 Mg Tablet.dr 81 Mg PO DAILY Torsemide 20 Mg Tablet 80 Mg PO DAILY Carvedilol (Carvedilol) 3.125 Mg Tablet 3.125 Mg PO BIDWMEALS Vitals/I & O Vital Sign - Last 24 Hours 06/25/19 06/25/19 06/25/19 06/25/19 11:46 13:08 15:37 18:29 Pulse 70 Resp 20 22 B/P (MAP) 93/58 (70) Pulse Ox 97 94 100 97 O2 Delivery Room Air Nasal Cannula Room Air Room Air O2 Flow Rate 2.0 2.0 06/25/19 06/25/19 06/25/19 06/25/19 18:32 19:00 19:29 20:00 Temp 98.0 98.0 Pulse 97 98 Resp 22 B/P (MAP) 97/68 104/77 (86) Pulse Ox 92 O2 Delivery Room Air Nasal Cannula Nasal Cannula O2 Flow Rate 2.0 2.0 06/25/19 06/26/19 06/26/19 06/26/19 23:00 00:56 02:15 03:00 Temp 97.8 97.8 97.8 97.8 Pulse 99 97 Resp 20 18 B/P (MAP) 102/72 (82) 104/69 (81) Pulse Ox 95 94 O2 Delivery Room Air Room Air Room Air Room Air 06/26/19 06/26/19 06/26/19 07:00 08:00 08:40 Temp 97.7 97.7 Pulse 87 Resp 16 B/P (MAP) 100/61 (74) Pulse Ox 96 O2 Delivery Room Air Room Air Nasal Cannula O2 Flow Rate 2.0 Intake and Output 06/25/19 06/25/19 06/26/19 15:00 23:00 07:00 Output Total 1500 ml 1200 ml Balance -1500 ml -1200 ml DEVON MARSHALL MD Jun 26, 2019 11:41
[2019-06-26 19:00] VITALS: BP 117/76
[2019-06-27 07:00] VITALS: BP 138/89
[2019-06-27] MEDS: IPRATRPIUM/ALBUTEROL 0.5/2.5MG 3 ML NEBU. NEB SCH ×4 (08:04→20:21)
[2019-06-27] MEDS ORDERED: FOLIC ACID 1 MG TABLET. PO SCH (09:00)
[2019-06-27] MEDS ORDERED: THIAMINE 100 MG TABLET. PO SCH (09:00)
[2019-06-27] MEDS ORDERED: MULTIVITAMIN with MINERAL TABLET. PO SCH (09:00)
[2019-06-27] MEDS: CARVEDILOL 3.125 MG TABLET. PO SCH ×2 (10:36→18:45)
[2019-06-27] MEDS: TORSEMIDE 20 MG TABLET. PO SCH (10:36)
--- NOTE | 2019-06-27 10:42 | PDOC ---
PROGRESS NOTES Chief Complaint Chief Complaint impression ALTERED MENTAL STATUS SEC TO PSYCHOSIS 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 SEVERE MORBID OBESITY UTI HX AICD secondary to nonischemic cardiomyopathy with an ejection fraction reported at 15% History of Present Illness History of Present Illness eating lunch , nursing staff concerned that he may fall. gait unstable., slow to improve D/W RN Vitals Vitals Vital Signs Date Time Temp Pulse Resp B/P (MAP) Pulse Ox O2 Delivery O2 Flow Rate FiO2 06/27/19 10:36 120 138/89 06/27/19 07:59 98 Nasal Cannula 3.0 06/27/19 07:00 97.8 16 97.8 Physical Exam Physical Exam Constitutional: Disheveled, MODERATELY altered HENT: Normocephalic, atraumatic, bilateral external ears normal, oropharynx moist, no oral exudates, nose normal. [] Eyes: PERRLA, EOMI,, no discharge. [] Sclera appear icteric Neck: Normal range of motion, no tenderness, supple, no stridor. [] Cardiovascular: Difficult exam distant heart sounds Lungs & Thorax: Decreased at the bases Abdomen: Bowel sounds normal, soft, there is significant obesity difficult to assess for clear exam Back: No tenderness, no CVA tenderness. [] Extremities: No tenderness, no cyanosis, no clubbing, ROM intact, anasarca present Neurologic: Patient is moaning almost incoherently HEENT: Mucous membr. moist/pink Lungs: Clear to auscultation Heart: RRR Breasts: Not examined Abdomen: Normal bowel sounds, Soft Rectal Exam: not examined PELVIC: Examination not indicated Extremities: No cyanosis Neuro: Cranial nerves 3-12 NL General: Cooperative, No acute distress Lungs: Clear Abdomen: Normal bowel sounds, Soft, No tenderness Extremities: No cyanosis Skin: No breakdown Labs LABS Laboratory Tests Test 06/26/19 20:16 06/27/19 07:33 Glucose (Fingerstick) 79 mg/dL (70-99) 111 mg/dL (70-99) Comment Review of Relevant I have reviewed the following items severo (where applicable) has been applied. Labs Laboratory Tests Test 06/26/19 08:28 06/26/19 20:16 06/27/19 07:33 Glucose (Fingerstick) 75 mg/dL (70-99) 79 mg/dL (70-99) 111 mg/dL (70-99) Laboratory Tests Test 06/26/19 20:16 06/27/19 07:33 Glucose (Fingerstick) 79 mg/dL (70-99) 111 mg/dL (70-99) Medications Current Medications Morphine Sulfate (Roxanol Conc) 5 mg PRN Q2HRS PRN SL SOA/MOD-SEVERE PAIN Last administered on 06/26/19at 23:43; Start 06/22/19 at 16:30 Lorazepam (Ativan) 1 mg PRN Q4HRS PRN PO ANXIETY / AGITATION; Start 06/22/19 at 16:30; Stop 06/22/19 at 17:44; Status DC Bisacodyl (Dulcolax Supp) 10 mg PRN DAILY PRN [place] CONSTIPATION; Start 06/22/19 at 16:30 Promethazine HCl (Phenergan Supp) 25 mg PRN Q4HRS PRN [place] NAUSEA/VOMITING; Start 06/22/19 at 16:30 Acetaminophen (Tylenol Supp) 650 mg PRN Q4HRS PRN [place] MILD PAIN / TEMP; Start 06/22/19 at 16:30 Aspirin (Ecotrin) 81 mg DAILY PO Last administered on 06/24/19at 07:53; Start 06/23/19 at 09:00; Stop 06/24/19 at 15:43; Status DC Atorvastatin Calcium (Lipitor) 40 mg HS PO Last administered on 06/23/19at 19:43; Start 06/22/19 at 21:00; Stop 06/24/19 at 15:43; Status DC Bupropion HCl (Wellbutrin Xl) 75 mg DAILY PO Last administered on 06/24/19at 07:53; Start 06/23/19 at 09:00; Stop 06/24/19 at 15:43; Status DC Carvedilol (Coreg) 3.125 mg BIDWMEALS PO Last administered on 06/27/19at 10:36; Start 06/22/19 at 17:00 Levothyroxine Sodium (Synthroid) 25 mcg DAILYAC PO Last administered on 06/24/19at 07:53; Start 06/23/19 at 07:30; Stop 06/24/19 at 15:43; Status DC Torsemide (Demadex) 80 mg DAILY PO Last administered on 06/27/19at 10:36; Start 06/23/19 at 09:00 Multivitamins (Thera M Plus) 1 tab DAILY PO ; Start 06/27/19 at 09:00; Stop 06/24/19 at 15:43; Status DC Folic Acid (Folic Acid) 1 mg DAILY PO ; Start 06/27/19 at 09:00; Stop 06/24/19 at 15:43; Status DC Thiamine Mononitrate (Vitamin B-1) 100 mg DAILY PO ; Start 06/27/19 at 09:00; Stop 06/24/19 at 15:43; Status DC Thiamine HCl 100 mg DAILY IM Last administered on 06/24/19at 07:56; Start 06/23/19 at 09:00; Stop 06/24/19 at 15:43; Status DC Lorazepam (Ativan) 4 mg PRN Q1HR PRN PO For CIWA 8-14 Last administered on 06/26/19at 06:15; Start 06/22/19 at 17:45 Lorazepam (Ativan) 8 mg PRN Q1HR PRN PO For CIWA 15 or greater; Start 06/22/19 at 17:45 Lorazepam (Ativan Inj) 2 mg PRN Q1HR PRN IV For CIWA 8-14 Last administered on 06/27/19at 01:48; Start 06/22/19 at 17:45 Lorazepam (Ativan Inj) 4 mg PRN Q1HR PRN IV For CIWA 15 or greater Last administered on 06/26/19at 14:05; Start 06/22/19 at 17:45 Haloperidol Lactate (Haldol Inj) 5 mg PRN Q4HRS PRN IVP Hallucinatns,Confusn,Delirium Last administered on 06/26/19at 22:16; Start 06/22/19 at 17:45 Diphenhydramine HCl (Benadryl) 25 mg PRN Q15MIN PRN IVP EPS symptoms 2'Haldol admin Last administered on 06/26/19at 04:28; Start 06/22/19 at 17:45 Lorazepam (Ativan Inj) 2 mg PRN Q15MIN PRN IV SEE COMMENTS; Start 06/22/19 at 17:45; Status Cancel Lorazepam (Ativan Inj) 4 mg PRN Q15MIN PRN IV SEE COMMENTS; Start 06/22/19 at 17:45; Status Cancel Lorazepam (Ativan) 4 mg PRN Q4HRS PRN PO ANXIETY / AGITATION Last administered on 06/25/19at 04:54; Start 06/22/19 at 17:45 Prochlorperazine Maleate (Compazine) 10 mg PRN Q8HRS PRN PO NAUSEA/VOMITING Last administered on 06/22/19at 17:57; Start 06/22/19 at 17:45 Albuterol/ Ipratropium (Duoneb) 3 ml RTQID NEB Last administered on 06/27/19at 08:04; Start 06/23/19 at 16:00 Acetaminophen (Tylenol) 650 mg PRN Q4HRS PRN PO MILD PAIN 1-3; Start 06/25/19 at 21:15 Active Scripts Active Reported Synthroid (Levothyroxine Sodium) 25 Mcg Tablet 25 Mcg PO DAILYAC Wellbutrin Xl (Bupropion Hcl) 150 Mg Tab.er.24h 75 Mg PO DAILY Atorvastatin Calcium 40 Mg Tablet 40 Mg PO HS Aspir-Low (Aspirin) 81 Mg Tablet.dr 81 Mg PO DAILY Torsemide 20 Mg Tablet 80 Mg PO DAILY Carvedilol (Carvedilol) 3.125 Mg Tablet 3.125 Mg PO BIDWMEALS Vitals/I & O Vital Sign - Last 24 Hours 06/26/19 06/26/19 06/26/19 06/26/19 19:00 20:00 20:21 23:43 Temp 97.9 97.9 Pulse 103 Resp 18 B/P (MAP) 117/76 (90) Pulse Ox 90 95 O2 Delivery Room Air Room Air Nasal Cannula Room Air O2 Flow Rate 2.0 06/27/19 06/27/19 06/27/19 06/27/19 00:45 07:00 07:59 10:36 Temp 97.8 97.8 Pulse 120 120 Resp 16 B/P (MAP) 138/89 (105) 138/89 Pulse Ox 87 98 O2 Delivery Room Air Room Air Nasal Cannula O2 Flow Rate 3.0 Intake and Output 06/26/19 06/26/19 06/27/19 15:00 23:00 07:00 Intake Total 240 ml Balance 240 ml DEVON MARSHALL MD Jun 27, 2019 10:41
[2019-06-27] MEDS: HALOPERIDOL LACTATE 5 MG/ML VIAL. IVP PRN (18:43)
[2019-06-27 19:00] VITALS: BP 117/82
[2019-06-27 21:30] VITALS: BP 117/82
[2019-06-28 07:00] VITALS: BP 111/72
[2019-06-28] MEDS: CARVEDILOL 3.125 MG TABLET. PO SCH ×2 (08:00→17:00)
[2019-06-28] MEDS: IPRATRPIUM/ALBUTEROL 0.5/2.5MG 3 ML NEBU. NEB SCH ×4 (08:05→18:40)
[2019-06-28] MEDS: TORSEMIDE 20 MG TABLET. PO SCH (09:00)
--- NOTE | 2019-06-28 11:07 | NUR ---
SW following. Discussed with RN. ORLY spoke with [facility] social media marketing manager. Lou advised the general manager land department of [facility] is trying to get emergency guardianship for pt's mother in order to place pt in a facility. Pt still inpatient hospice with [facility]. RN advised pt is not very alert today. SW will continue to follow.
--- NOTE | 2019-06-28 11:31 | PDOC ---
PROGRESS NOTES Chief Complaint Chief Complaint impression ALTERED MENTAL STATUS SEC TO PSYCHOSIS 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 SEVERE MORBID OBESITY UTI HX AICD secondary to nonischemic cardiomyopathy with an ejection fraction reported at 15% History of Present Illness History of Present Illness nursing staff concerned that he may fall. gait unstable., slow to improve await placement 06/27 D/W RN Vitals Vitals Vital Signs Date Time Temp Pulse Resp B/P (MAP) Pulse Ox O2 Delivery O2 Flow Rate FiO2 06/28/19 08:05 96 Nasal Cannula 06/28/19 08:00 66 111/72 06/28/19 07:15 2.0 06/28/19 07:00 97.4 18 97.4 Physical Exam Physical Exam Constitutional: Disheveled, MODERATELY altered not making conversation HENT: Normocephalic, atraumatic, bilateral external ears normal, oropharynx moist, no oral exudates, nose normal. [] Eyes: PERRLA, EOMI,, no discharge. [] Sclera appear icteric Neck: Normal range of motion, no tenderness, supple, no stridor. [] Cardiovascular: Difficult exam distant heart sounds Lungs & Thorax: Decreased at the bases Abdomen: Bowel sounds normal, soft, there is significant obesity difficult to assess for clear exam Back: No tenderness, no CVA tenderness. [] Extremities: No tenderness, no cyanosis, no clubbing, ROM intact, anasarca present Neurologic: Patient is moaning almost incoherently HEENT: Mucous membr. moist/pink Lungs: Clear to auscultation Heart: RRR Breasts: Not examined Abdomen: Normal bowel sounds, Soft Rectal Exam: not examined PELVIC: Examination not indicated Extremities: No cyanosis Neuro: Cranial nerves 3-12 NL General: Alert, Cooperative, No acute distress Lungs: Clear Abdomen: Normal bowel sounds, Soft, No tenderness Extremities: No cyanosis Skin: No breakdown Labs LABS Laboratory Tests Test 06/27/19 20:44 06/28/19 07:19 Glucose (Fingerstick) 136 mg/dL (70-99) 83 mg/dL (70-99) Comment Review of Relevant I have reviewed the following items severo (where applicable) has been applied. Labs Laboratory Tests Test 06/26/19 20:16 06/27/19 07:33 06/27/19 20:44 06/28/19 07:19 Glucose (Fingerstick) 79 mg/dL (70-99) 111 mg/dL (70-99) 136 mg/dL (70-99) 83 mg/dL (70-99) Laboratory Tests Test 06/27/19 20:44 06/28/19 07:19 Glucose (Fingerstick) 136 mg/dL (70-99) 83 mg/dL (70-99) Medications Current Medications Morphine Sulfate (Roxanol Conc) 5 mg PRN Q2HRS PRN SL SOA/MOD-SEVERE PAIN Last administered on 06/26/19at 23:43; Start 06/22/19 at 16:30 Lorazepam (Ativan) 1 mg PRN Q4HRS PRN PO ANXIETY / AGITATION; Start 06/22/19 at 16:30; Stop 06/22/19 at 17:44; Status DC Bisacodyl (Dulcolax Supp) 10 mg PRN DAILY PRN OR CONSTIPATION; Start 06/22/19 at 16:30 Promethazine HCl (Phenergan Supp) 25 mg PRN Q4HRS PRN OR NAUSEA/VOMITING; Start 06/22/19 at 16:30 Acetaminophen (Tylenol Supp) 650 mg PRN Q4HRS PRN OR MILD PAIN / TEMP; Start 06/22/19 at 16:30 Aspirin (Ecotrin) 81 mg DAILY PO Last administered on 06/24/19at 07:53; Start 06/23/19 at 09:00; Stop 06/24/19 at 15:43; Status DC Atorvastatin Calcium (Lipitor) 40 mg HS PO Last administered on 06/23/19at 19:43; Start 06/22/19 at 21:00; Stop 06/24/19 at 15:43; Status DC Bupropion HCl (Wellbutrin Xl) 75 mg DAILY PO Last administered on 06/24/19at 07:53; Start 06/23/19 at 09:00; Stop 06/24/19 at 15:43; Status DC Carvedilol (Coreg) 3.125 mg BIDWMEALS PO Last administered on 06/27/19at 18:45; Start 06/22/19 at 17:00 Levothyroxine Sodium (Synthroid) 25 mcg DAILYAC PO Last administered on 06/24/19at 07:53; Start 06/23/19 at 07:30; Stop 06/24/19 at 15:43; Status DC Torsemide (Demadex) 80 mg DAILY PO Last administered on 06/27/19at 10:36; Start 06/23/19 at 09:00 Multivitamins (Thera M Plus) 1 tab DAILY PO ; Start 06/27/19 at 09:00; Stop 06/24/19 at 15:43; Status DC Folic Acid (Folic Acid) 1 mg DAILY PO ; Start 06/27/19 at 09:00; Stop 06/24/19 at 15:43; Status DC Thiamine Mononitrate (Vitamin B-1) 100 mg DAILY PO ; Start 06/27/19 at 09:00; Stop 06/24/19 at 15:43; Status DC Thiamine HCl 100 mg DAILY IM Last administered on 06/24/19at 07:56; Start 06/23/19 at 09:00; Stop 06/24/19 at 15:43; Status DC Lorazepam (Ativan) 4 mg PRN Q1HR PRN PO For CIWA 8-14 Last administered on 06/26/19at 06:15; Start 06/22/19 at 17:45 Lorazepam (Ativan) 8 mg PRN Q1HR PRN PO For CIWA 15 or greater; Start 06/22/19 at 17:45 Lorazepam (Ativan Inj) 2 mg PRN Q1HR PRN IV For CIWA 8-14 Last administered on 06/27/19at 19:58; Start 06/22/19 at 17:45 Lorazepam (Ativan Inj) 4 mg PRN Q1HR PRN IV For CIWA 15 or greater Last administered on 06/26/19at 14:05; Start 06/22/19 at 17:45 Haloperidol Lactate (Haldol Inj) 5 mg PRN Q4HRS PRN IVP Hallucinatns,Confusn,Delirium Last administered on 06/27/19at 18:43; Start 06/22/19 at 17:45 Diphenhydramine HCl (Benadryl) 25 mg PRN Q15MIN PRN IVP EPS symptoms 2'Haldol admin Last administered on 06/26/19at 04:28; Start 06/22/19 at 17:45 Lorazepam (Ativan Inj) 2 mg PRN Q15MIN PRN IV SEE COMMENTS; Start 06/22/19 at 17:45; Status Cancel Lorazepam (Ativan Inj) 4 mg PRN Q15MIN PRN IV SEE COMMENTS; Start 06/22/19 at 17:45; Status Cancel Lorazepam (Ativan) 4 mg PRN Q4HRS PRN PO ANXIETY / AGITATION Last administered on 06/25/19at 04:54; Start 06/22/19 at 17:45 Prochlorperazine Maleate (Compazine) 10 mg PRN Q8HRS PRN PO NAUSEA/VOMITING Last administered on 06/22/19at 17:57; Start 06/22/19 at 17:45 Albuterol/ Ipratropium (Duoneb) 3 ml RTQID NEB Last administered on 06/28/19at 08:05; Start 06/23/19 at 16:00 Acetaminophen (Tylenol) 650 mg PRN Q4HRS PRN PO MILD PAIN 1-3; Start 06/25/19 at 21:15 Active Scripts Active Reported Synthroid (Levothyroxine Sodium) 25 Mcg Tablet 25 Mcg PO DAILYAC Wellbutrin Xl (Bupropion Hcl) 150 Mg Tab.er.24h 75 Mg PO DAILY Atorvastatin Calcium 40 Mg Tablet 40 Mg PO HS Aspir-Low (Aspirin) 81 Mg Tablet.dr 81 Mg PO DAILY Torsemide 20 Mg Tablet 80 Mg PO DAILY Carvedilol (Carvedilol) 3.125 Mg Tablet 3.125 Mg PO BIDWMEALS Vitals/I & O Vital Sign - Last 24 Hours 06/27/19 06/27/19 06/27/19 06/27/19 11:40 15:54 18:45 19:00 Temp 97.4 97.4 Pulse 120 105 Resp 18 B/P (MAP) 138/89 117/82 (94) Pulse Ox 93 95 O2 Delivery Nasal Cannula Nasal Cannula Room Air O2 Flow Rate 3.0 3.0 06/27/19 06/27/19 06/27/19 06/28/19 20:00 20:26 21:30 07:00 Temp 97.4 97.4 97.4 97.4 Pulse 105 66 Resp 18 18 B/P (MAP) 117/82 (94) 111/72 (85) Pulse Ox 85 94 81 O2 Delivery Nasal Cannula Room Air Room Air Nasal Cannula O2 Flow Rate 2.0 2.0 06/28/19 06/28/19 06/28/19 07:15 08:00 08:05 Pulse 66 B/P (MAP) 111/72 Pulse Ox 96 O2 Delivery Nasal Cannula Nasal Cannula O2 Flow Rate 2.0 DEVON MARSHALL MD Jun 28, 2019 11:31
[2019-06-28] MEDS ORDERED: HALOPERIDOL 2 MG/ML ORAL.CONC. PO PRN (13:30)
[2019-06-28] MEDS ORDERED: LORazepam INTENSOL 2 MG/ML ORAL.CONC PO PRN ×2 (13:34→13:35)
[2019-06-28] MEDS: MORPHINE SULFATE 20 MG/ML CONC SOLUTION. SL PRN ×2 (13:35→15:57)
--- NOTE | 2019-06-28 17:25 | NUR ---
Pt. too drowsy at this time to give 1700 Coreg PO safely. Pt. apppears comfortable
[2019-06-28 19:00] VITALS: BP 138/81
[2019-06-29] MEDS: LORazepam INTENSOL 2 MG/ML ORAL.CONC PO PRN ×4 (01:00→14:35)
--- NOTE | 2019-06-29 04:00 | NUR ---
Pt was able to stand, transfer and wanting to sit in chair. Pulse Oxygenation 100% on ear. Encouraged Pt to go back to bed. Pt walked and transferred assist x 2 back to bed.
[2019-06-29 07:15] VITALS: BP 137/99
[2019-06-29] MEDS: IPRATRPIUM/ALBUTEROL 0.5/2.5MG 3 ML NEBU. NEB SCH ×4 (07:44→19:37)
[2019-06-29] MEDS: CARVEDILOL 3.125 MG TABLET. PO SCH ×2 (08:19→16:56)
[2019-06-29] MEDS: TORSEMIDE 20 MG TABLET. PO SCH (08:19)
[2019-06-29] MEDS: MORPHINE SULFATE 20 MG/ML CONC SOLUTION. SL PRN ×8 (08:20→19:24)
--- NOTE | 2019-06-29 10:42 | PDOC ---
PROGRESS NOTES Chief Complaint Chief Complaint impression ALTERED MENTAL STATUS SEC TO PSYCHOSIS 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 SEVERE MORBID OBESITY UTI HX AICD secondary to nonischemic cardiomyopathy with an ejection fraction reported at 15% FALL IN ROOM TODAY 06/28, sitter needed History of Present Illness History of Present Illness nursing staff concerned that he may fall. again gait unstable., slow to improve await placement 06/28 D/W RN Vitals Vitals Vital Signs Date Time Temp Pulse Resp B/P (MAP) Pulse Ox O2 Delivery O2 Flow Rate FiO2 06/29/19 09:20 Nasal Cannula 2.0 06/29/19 08:19 101 137/99 06/29/19 07:15 98.2 18 94 98.2 Physical Exam Physical Exam Constitutional: Disheveled, MODERATELY altered not making conversation HENT: Normocephalic, atraumatic, bilateral external ears normal, oropharynx moist, no oral exudates, nose normal. [] Eyes: PERRLA, EOMI,, no discharge. [] Sclera appear icteric Neck: Normal range of motion, no tenderness, supple, no stridor. [] Cardiovascular: Difficult exam distant heart sounds Lungs & Thorax: Decreased at the bases Abdomen: Bowel sounds normal, soft, there is significant obesity difficult to assess for clear exam Back: No tenderness, no CVA tenderness. [] Extremities: No tenderness, no cyanosis, no clubbing, ROM intact, anasarca present Neurologic: Patient is moaning almost incoherently HEENT: Mucous membr. moist/pink Lungs: Clear to auscultation Heart: RRR Breasts: Not examined Abdomen: Normal bowel sounds, Soft Rectal Exam: not examined PELVIC: Examination not indicated Extremities: No cyanosis Neuro: Cranial nerves 3-12 NL General: Alert, Cooperative, No acute distress Heart: Normal S1 Lungs: Clear Abdomen: Normal bowel sounds, Soft, No tenderness Extremities: No clubbing, No cyanosis Skin: No breakdown Labs LABS Laboratory Tests Test 06/28/19 21:12 06/29/19 07:04 Glucose (Fingerstick) 119 mg/dL (70-99) 76 mg/dL (70-99) Comment Review of Relevant I have reviewed the following items severo (where applicable) has been applied. Labs Laboratory Tests Test 06/27/19 20:44 06/28/19 07:19 06/28/19 21:12 06/29/19 07:04 Glucose (Fingerstick) 136 mg/dL (70-99) 83 mg/dL (70-99) 119 mg/dL (70-99) 76 mg/dL (70-99) Laboratory Tests Test 06/28/19 21:12 06/29/19 07:04 Glucose (Fingerstick) 119 mg/dL (70-99) 76 mg/dL (70-99) Medications Current Medications Morphine Sulfate (Roxanol Conc) 5 mg PRN Q2HRS PRN SL SOA/MOD-SEVERE PAIN Last administered on 06/29/19at 08:20; Start 06/22/19 at 16:30 Lorazepam (Ativan) 1 mg PRN Q4HRS PRN PO ANXIETY / AGITATION; Start 06/22/19 at 16:30; Stop 06/22/19 at 17:44; Status DC Bisacodyl (Dulcolax Supp) 10 mg PRN DAILY PRN PA CONSTIPATION; Start 06/22/19 at 16:30 Promethazine HCl (Phenergan Supp) 25 mg PRN Q4HRS PRN PA NAUSEA/VOMITING; Start 06/22/19 at 16:30 Acetaminophen (Tylenol Supp) 650 mg PRN Q4HRS PRN PA MILD PAIN / TEMP; Start 06/22/19 at 16:30 Aspirin (Ecotrin) 81 mg DAILY PO Last administered on 06/24/19at 07:53; Start 06/23/19 at 09:00; Stop 06/24/19 at 15:43; Status DC Atorvastatin Calcium (Lipitor) 40 mg HS PO Last administered on 06/23/19at 19:43; Start 06/22/19 at 21:00; Stop 06/24/19 at 15:43; Status DC Bupropion HCl (Wellbutrin Xl) 75 mg DAILY PO Last administered on 06/24/19at 07:53; Start 06/23/19 at 09:00; Stop 06/24/19 at 15:43; Status DC Carvedilol (Coreg) 3.125 mg BIDWMEALS PO Last administered on 06/29/19at 08:19; Start 06/22/19 at 17:00 Levothyroxine Sodium (Synthroid) 25 mcg DAILYAC PO Last administered on 06/24/19at 07:53; Start 06/23/19 at 07:30; Stop 06/24/19 at 15:43; Status DC Torsemide (Demadex) 80 mg DAILY PO Last administered on 06/29/19at 08:19; Start 06/23/19 at 09:00 Multivitamins (Thera M Plus) 1 tab DAILY PO ; Start 06/27/19 at 09:00; Stop 06/24/19 at 15:43; Status DC Folic Acid (Folic Acid) 1 mg DAILY PO ; Start 06/27/19 at 09:00; Stop 06/24/19 at 15:43; Status DC Thiamine Mononitrate (Vitamin B-1) 100 mg DAILY PO ; Start 06/27/19 at 09:00; Stop 06/24/19 at 15:43; Status DC Thiamine HCl 100 mg DAILY IM Last administered on 06/24/19at 07:56; Start 06/23/19 at 09:00; Stop 06/24/19 at 15:43; Status DC Lorazepam (Ativan) 4 mg PRN Q1HR PRN PO For CIWA 8-14 Last administered on 06/26/19at 06:15; Start 06/22/19 at 17:45; Stop 06/28/19 at 13:33; Status DC Lorazepam (Ativan) 8 mg PRN Q1HR PRN PO For CIWA 15 or greater; Start 06/22/19 at 17:45; Stop 06/28/19 at 13:34; Status DC Lorazepam (Ativan Inj) 2 mg PRN Q1HR PRN IV For CIWA 8-14 Last administered on 06/27/19at 19:58; Start 06/22/19 at 17:45 Lorazepam (Ativan Inj) 4 mg PRN Q1HR PRN IV For CIWA 15 or greater Last administered on 06/26/19at 14:05; Start 06/22/19 at 17:45 Haloperidol Lactate (Haldol Inj) 5 mg PRN Q4HRS PRN IVP Hallucinatns,Confusn,Delirium Last administered on 06/27/19at 18:43; Start 06/22/19 at 17:45; Stop 06/28/19 at 13:29; Status DC Diphenhydramine HCl (Benadryl) 25 mg PRN Q15MIN PRN IVP EPS symptoms 2'Haldol admin Last administered on 06/26/19at 04:28; Start 06/22/19 at 17:45 Lorazepam (Ativan Inj) 2 mg PRN Q15MIN PRN IV SEE COMMENTS; Start 06/22/19 at 17:45; Status Cancel Lorazepam (Ativan Inj) 4 mg PRN Q15MIN PRN IV SEE COMMENTS; Start 06/22/19 at 17:45; Status Cancel Lorazepam (Ativan) 4 mg PRN Q4HRS PRN PO ANXIETY / AGITATION Last administered on 06/25/19at 04:54; Start 06/22/19 at 17:45; Stop 06/28/19 at 13:35; Status DC Prochlorperazine Maleate (Compazine) 10 mg PRN Q8HRS PRN PO NAUSEA/VOMITING Last administered on 06/22/19at 17:57; Start 06/22/19 at 17:45 Albuterol/ Ipratropium (Duoneb) 3 ml RTQID NEB Last administered on 06/29/19at 07:44; Start 06/23/19 at 16:00 Acetaminophen (Tylenol) 650 mg PRN Q4HRS PRN PO MILD PAIN 1-3; Start 06/25/19 at 21:15 Haloperidol Lactate (HALDOL 2mg ORAL CONC) 2 mg PRN Q4HRS PRN PO DELUSION,CONFUSION; Start 06/28/19 at 13:30; Stop 06/28/19 at 13:29; Status DC Haloperidol Lactate (HALDOL 2mg ORAL CONC) 5 mg PRN Q4HRS PRN PO DELUSION,CONFUSION; Start 06/28/19 at 13:30 Lorazepam (Ativan Intensol) 4 mg PRN Q1HR PRN PO For CIWA 8-14 Last administered on 06/29/19at 08:20; Start 06/28/19 at 13:33 Lorazepam (Ativan Intensol) 8 mg PRN Q1HR PRN PO For CIWA 15 or greater; Start 06/28/19 at 13:34 Lorazepam (Ativan Intensol) 4 mg PRN Q4HRS PRN PO ANXIETY / AGITATION; Start 06/28/19 at 13:35 Active Scripts Active Reported Synthroid (Levothyroxine Sodium) 25 Mcg Tablet 25 Mcg PO DAILYAC Wellbutrin Xl (Bupropion Hcl) 150 Mg Tab.er.24h 75 Mg PO DAILY Atorvastatin Calcium 40 Mg Tablet 40 Mg PO HS Aspir-Low (Aspirin) 81 Mg Tablet.dr 81 Mg PO DAILY Torsemide 20 Mg Tablet 80 Mg PO DAILY Carvedilol (Carvedilol) 3.125 Mg Tablet 3.125 Mg PO BIDWMEALS Vitals/I & O Vital Sign - Last 24 Hours 06/28/19 06/28/19 06/28/19 06/28/19 13:35 14:45 15:36 15:57 Resp 28 28 Pulse Ox 93 O2 Delivery Nasal Cannula Nasal Cannula Nasal Cannula Nasal Cannula O2 Flow Rate 2.0 2.0 2.0 2.0 06/28/19 06/28/19 06/28/19 06/29/19 18:42 19:00 20:00 07:15 Temp 97.7 98.2 97.7 98.2 Pulse 108 101 Resp 18 18 B/P (MAP) 138/81 (100) 137/99 (112) Pulse Ox 98 95 94 O2 Delivery Nasal Cannula Nasal Cannula Nasal Cannula Room Air O2 Flow Rate 2.0 2.0 2.0 06/29/19 06/29/19 06/29/19 06/29/19 07:46 08:19 08:20 09:20 Pulse 101 B/P (MAP) 137/99 O2 Delivery Room Air Nasal Cannula Nasal Cannula O2 Flow Rate 2.0 2.0 Intake and Output 06/28/19 06/28/19 06/29/19 15:00 23:00 07:00 Intake Total 240 ml Balance 240 ml DEVON MARSHALL MD Jun 29, 2019 10:42
[2019-06-29] MEDS: HALOPERIDOL 2 MG/ML ORAL.CONC. PO PRN ×2 (11:11→16:05)
[2019-06-29] MEDS ORDERED: MORPHINE SULFATE 20 MG/ML CONC SOLUTION. SL PRN (12:45)
[2019-06-29] MEDS: ATROPINE 1% OPHTH SOLUTION 5ML BOTTLE. SL PRN ×2 (16:00→19:24)
[2019-06-29] MEDS ORDERED: HALOPERIDOL 2 MG/ML ORAL.CONC. PO SCH (18:00)
[2019-06-29] MEDS: HALOPERIDOL 2 MG/ML ORAL.CONC. PO SCH ×2 (18:17→21:38)
[2019-06-29 19:00] VITALS: BP 110/78
--- NOTE | 2019-06-30 02:22 | NUR ---
At 2300 noticed Pt not breathing went in and assessed Pt. Informed Charge Nurse Xiomara RN at 2302 we both assessed Pt. Pt had no pulse and no gag reflex. Notified Nursing Med Dir Rose RN at 2311. Paged Dr. Kumar at 2314. Called [facility] at 2318 and spoke with Ashwini the Patient Data Collection Specialist. Amalia RIVAS from [facility] notified Pt's Mother Lissette at 2351. Called [facility] at 0005 spoke with Harper Cifuentes Referal # [id number]. At 0030 Amalia RIVAS came to unit. [place] [facility] [place] at 0110 with Damian in Security. Informed [facility] and confirmed time with Harper Cifuentes. Informed Nursing Med Dir not to release body to [facility] until [facility] decides next steps with patient.
== END 2019-06-30 01:05 | disposition expired | DRG 292 ==
LOC: 5 SOUTH 13:33 → 4 NORTH 06-24 15:44
PROVIDERS: ADMIT Family Medicine; ATTEND Family Medicine
DX: I11.0 Hypertensive heart disease with heart failure (principal); F10.239 Alcohol dependence with withdrawal, unspecified; N39.0 Urinary tract infection, site not specified; Z68.41 Body mass index [BMI] 40.0-44.9, adult; E03.9 Hypothyroidism, unspecified; I42.8 Other cardiomyopathies; E11.9 Type 2 diabetes mellitus without complications; E66.01 Morbid (severe) obesity due to excess calories; E78.00 Pure hypercholesterolemia, unspecified; F17.210 Nicotine dependence, cigarettes, uncomplicated; F29 Unspecified psychosis not due to a substance or known physiological condition; I50.84 End stage heart failure; Z82.49 Family history of ischemic heart disease and other diseases of the circulatory system; F32.9 Major depressive disorder, single episode, unspecified; F41.9 Anxiety disorder, unspecified; Z88.8 Allergy status to other drugs, medicaments and biological substances; Z79.899 Other long term (current) drug therapy
CPT/HCPCS: 82962; 94640; 94760; J1200; J1630; J2060; J3411; G0378; Q0164